=== PATIENT | female | born 1990 | race Caucasian/White ===

== ENCOUNTER 2018-11-09 12:30 | Emergency (ER) | payer SELFPAY ==
[~2018-11-09] VITALS: Ht 152.4 cm; Wt 46.7 kg
[2018-11-09 13:01] VITALS: BP 118/80; Ht 152.4 cm; Wt 46.7 kg
== END 2018-11-09 16:14 | disposition left against medical advice (07) ==
LOC: ED 12:30
DX: Z53.21 Procedure and treatment not carried out due to patient leaving prior to being seen by health care provider (principal)

== ENCOUNTER 2019-11-08 21:33 | Emergency (ER) | payer SELFPAY ==
[~2019-11-08] VITALS: Ht 152.4 cm; Wt 47.6 kg
[2019-11-08 21:36] VITALS: Ht 152.4 cm; Wt 47.6 kg
[2019-11-08 22:28] LABS: BASOPHIL % 0.6 % (0-2); PLATELET COUNT 271 x10^3mcL (130-400); RED CELL DISTRIBUTION WIDTH 13.9 % (11.5-14.5)
[2019-11-08 22:46] LABS: ALBUMIN 3.7 g/dL (3.4-5.0); ALKALINE PHOSPHATASE 51 U/L (46-116); ALT/SGPT 21 U/L (14-59); AST/SGOT 19 U/L (15-37); BILIRUBIN TOTAL 0.24 mg/dL (0.20-1.00); CARBON DIOXIDE 24.4 mmol/L (21-32); CHLORIDE SERUM 107 mmol/L (98-107); CREATININE SERUM 0.5 mg/dL (0.6-1.0); GFR1 > 60 mL/min; GLUCOSE SERUM 95 mg/dL (74-106); SODIUM SERUM 146 mmol/L (136-145); TOTAL PROTEIN, SERUM 7.4 g/dL (6.4-8.2)
[2019-11-08 22:54] LABS: POTASSIUM SERUM 2.9 mmol/L (3.5-5.1)
[2019-11-09 00:13] LABS: T3 TOTAL 1.43 ng/mL
[2019-11-09 00:31] LABS: FREE T4 1.12 ng/dL (0.76-1.46); FREE THYROXINE INDEX 3.3 ug/dL (1.4-4.5)
[2019-11-09 01:58] LABS: AMPHETAMINE QUAL UR NONE DETECTED (See below)
[2019-11-09 20:37] VITALS: BP 112/64
== END 2019-11-09 20:37 | disposition home or self-care (01) ==
LOC: ED 21:33
PROVIDERS: Emergency Medicine
DX: T43.212A Poisoning by selective serotonin and norepinephrine reuptake inhibitors, intentional self-harm, initial encounter (principal); T43.592A Poisoning by other antipsychotics and neuroleptics, intentional self-harm, initial encounter; E87.6 Hypokalemia; S60.812A Abrasion of left wrist, initial encounter; S60.811A Abrasion of right wrist, initial encounter; X58.XXXA Exposure to other specified factors, initial encounter; Y93.89 Activity, other specified; Y99.8 Other external cause status; Y92.89 Other specified places as the place of occurrence of the external cause
CPT/HCPCS: 84439; G0480; J7030